=== PATIENT | female | born 1955 | race African-American/Black ===

== ENCOUNTER → 2019-10-22 | Day surgery (SDC) | payer MEDICARE, OTHER ==
[2019-10-18 12:36] LABS: CALCIUM 9.5 mg/dL (8.4-10.2); CREATININE, SERUM 1.22 mg/dL (0.57-1.11)
[~2019-10-22] MED LIST: ACETAMINOPHEN/CODEINE 300MG - 30MG TAB ONE; ATORVASTATIN CA20 MG PO; CEFAZOLIN SOD 1 GM/NS 50ML 50 ML IV ONE; DEXAMETHASONE SOD PHOS INJ 4 MG/ML VIAL ONE; FENTANYL CITRATE/PF 100MCG/2 ML INJ ONE; GABAPENTIN300 MG PO; GLIPIZIDE10 MG PO; JANUVIA100 MG PO; KETOROLAC TROMETHAMINE 30 MG/ML VIAL ONE; LIDOCAINE HCL 2% LOCAL INJ 5 ML SDV VIAL INJ ONE; MIDAZOLAM HCL 2 MG/2 ML VIAL ONE; ONDANSETRON HCL INJ 2MG/ML 2ML 2 MG/ML VIAL ONE; PROPOFOL IV EMULSION 10 MG/ML 20 ML VIAL ONE; RAMIPRIL10 MG PO; SEVOFLURANE INHAL SOLN 250 ML PEN BTL ONE
[2019-10-22 10:11] VITALS: BP 153/79
--- NOTE | 2019-10-22 11:03 | Operative Report ---
DATE OF PROCEDURE: 10/22/2019 SURGEON: Geovany García MD HAND II THERMAL CUTTER: Adrian Magallon, certified PA. PREOPERATIVE DIAGNOSIS: Left knee medial meniscal tear. POSTOPERATIVE DIAGNOSIS: Left knee medial meniscal tear. PROCEDURES: Left knee arthroscopy, partial medial meniscectomy. 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 She also has a BMI over 50. She complains of persistent pain in her left knee despite conservative management. She would highly like to proceed with more aggressive intervention. She had arthroscopy in her right knee that helped some years ago by a different physician. The risks and benefits of the procedure have been discussed at length. Realistic expectations were discussed. Added challenges due to her weight were discussed. She states she understands and wishes to proceed. PROCEDURE IN DETAIL: The patient was brought to the operating room and placed under general anesthetic. Her left lower extremity was prepped and draped in a sterile manner. A preoperative time-out was performed. We could not use the traditional left knee holloway due to her body habitus. We did exsanguinate and inflate the tourniquet to 350 mmHg. Standard arthroscopy portals were established. The knee was insufflated with sterile saline and systematically inspected. The patellofemoral groove was unremarkable. The medial compartment was inspected. There was a small tear of the posterior horn of the medial meniscus. 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 The cruciate ligaments and lateral compartment were unremarkable. Attention was returned to the medial compartment. The patient then developed a venous tourniquet and visibility was obscured with bleeding. The tourniquet was deflated and the visibility improved. A partial medial meniscectomy was performed using a mechanical shaver; before and after photographs were taken. The arthroscopic instruments were then removed. The portal incisions were closed with nylon stitches. A sterile bandage was applied. She was extubated and transported to the recovery room in stable condition. Geovany García MD DR/SP /[id number]
== END | disposition home or self-care (01) ==
LOC: OR 06:53
PROVIDERS: ATTEND Specialist
DX: S83.242A Other tear of medial meniscus, current injury, left knee, initial encounter (principal); M94.262 Chondromalacia, left knee; M17.12 Unilateral primary osteoarthritis, left knee; S83.241A Other tear of medial meniscus, current injury, right knee, initial encounter; E66.01 Morbid (severe) obesity due to excess calories; E11.9 Type 2 diabetes mellitus without complications; I10 Essential (primary) hypertension; X58.XXXA Exposure to other specified factors, initial encounter; Z88.6 Allergy status to analgesic agent; Z91.040 Latex allergy status; Z01.810 Encounter for preprocedural cardiovascular examination; Z01.812 Encounter for preprocedural laboratory examination; Z11.59 Encounter for screening for other viral diseases; Z79.84 Long term (current) use of oral hypoglycemic drugs; Z68.43 Body mass index [BMI] 50.0-59.9, adult
CPT/HCPCS: 29881; 36415 ×2; 80048; 82948; 87635; 93005; J0690; J1100; J1885; J2001; J2250; J2405; J2704; J3010